=== PATIENT | female | born 1990 ===

== ENCOUNTER 2025-10-24 20:34 | Inpatient (IN) ==
[2025-10-24] MEDS ORDERED: OXYTOCIN 10 UNIT/ML VIAL IM PRN (21:09)
[2025-10-24] MEDS ORDERED: SODIUM CHLORIDE FLUSH 0.9% 10 ML SYRINGE IVP PRN (21:09)
[2025-10-24] MEDS ORDERED: fentaNYL 100 MCG/2 ML VIAL IVP PRN (21:09)
[2025-10-24] MEDS ORDERED: METHYLERGONOVINE 0.2 MG/ML VIAL IM PRN (21:09)
[2025-10-24] MEDS ORDERED: TERBUTALINE 1 MG/ML VIAL SUBQ PRN (21:09)
[2025-10-24] MEDS ORDERED: CARBOPROST TROMETHAMINE 250 MCG/ML VIAL IM PRN (21:09)
[2025-10-24] MEDS ORDERED: LABETALOL 20 MG/4 ML SYRINGE IVP PRN ×3 (21:09)
[2025-10-24] MEDS ORDERED: hydrALAZINE INJ 20 MG/ML VIAL IVP PRN (21:09)
[2025-10-24 21:23] LABS: HCT - HEMATOCRIT 36.7 % (37.0-47.0); HGB - HEMOGLOBIN 12.6 g/dL (12.0-16.0); MEAN PLATELET VOLUME 11.7 fL (7.9-10.8); NRBC ABSOLUTE COUNT (AUTO) 0.00 x10^3/uL; NUCLEATED RED BLOOD CELLS AUTO 0.0 /100WBC; PLT - PLATELET COUNT 249 10^3/uL (130-450); RED CELL DISTRIBUTION WIDTH 13.0 % (12.0-15.0)
--- NOTE | 2025-10-24 21:26 | HISTORY & PHYSICAL EXAMINATION ---
NST Procedure NST Procedure: NST Procedure Start Time 17:24 Stop Time 18:07 Meds/Allgy Home Medications Ambulatory Orders Medication Instructions Recorded Confirmed aspirin 81 mg tablet,delayed 81 mg PO QDAY 07/21/25 release cholecalciferol (vitamin D3) 25 25 mcg PO QDAY 5 10/24/25 mcg (1,000 unit) capsule levothyroxine 50 mcg capsule 50 mcg PO QDAY 07/21/25 1 12/25/24 loratadine 10 mg capsule 10 mg PO QDAY 07/21/2510/24 omega-3 fatty acids-fish oil 300 cap PO 07/21/2510/24 mg-500 mg capsule (Fish Oil) triamcinolone acetonide 55 mcg 1 spray intranasal QDAY 07/21/25 10/24/25 nasal spray aerosol Allergies Allergies Allergy/AdvReac Type Severity Reaction Status Date / Time Penicillins Allergy Rash Verified 10/24/25 16:10 PFSH Active Problems All Active Problems (Updated 10/24/25 @ 21:11 by Myesha Ying CNM, SUPERVISOR RECLAMATION) Supervision of normal in third trimester (Acute) ROD (amniotic fluid index) borderline low (Acute) Uterine size date discrepancy (Acute) Rh negative status during in third trimester (Acute) Hypothyroidism affecting in third trimester (Acute) Supervision of normal in second trimester (Acute) Medical History Medical History (Updated 10/24/25 @ 21:11 by Myesha Ying CNM, SUPERVISOR RECLAMATION) Seasonal allergies Abnormal Pap smear of cervix 2019 Hypothyroidism Surgical History Surgical History (Updated 07/21/25 @ 16:02 by Tressa Sanchez RN) H/O breast implant Family History Family History (Updated 07/24/25 @ 11:00 by Paola Corona MA) Mother Breast cancer Father Skin cancer Social History Social History Smoking Status: Never smoker Second hand tobacco smoke exposure: No Do you dip or chew tobacco?: No Do you vape?: No Living arrangement: At home ETOH Use: None Substance Use: denies use 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 She presented earlier in the day with concerns for decreased amniotic fluid however this was deemed to be normal by formal bedside ultrasound with ROD 13. A ROM+ was positive although discussion that sample was likely contaminated with blood due to recent cervical exam was discussed. Given potential for possible rupture of membranes and 39.6wk gestation, the decision was made to admit the patient for management. Upon arrival this evening she is found to contract every 4-5 minutes with soft resting tone. FHR baseline 120s, moderate variability, no accels, no decels. SVE was deferred however most recent SVE in the office this afternoon was 2-3/60/-2 and vertex. She will be admitted to [facility] for pre-augmentation cervical ripening with misoprostol. She has been a patient of [facility] since her transfer of care from [facility] at 28wks gestation. Her has remained uncomplicated with the exception of mild anemia. In the event of an emergency, ACCEPTS the administration of blood products : SAB G2: SAB G3: Current Partner/FOB:[facility] Hx: hypothyroid Surgical Hx: Breast augmentation, wisdom teeth extractions. Social Hx: No smoking Family Hx: Dad - skin cancer, Mom Breast cancer Allergies:PCN Medications: LDASA, PNV, levothyroxine Problems:Hypothyroidism will repeat TSH with every blood draw Consults: LMP:01/18/2025 BERENICE by LMP: 10/25/2025 U/S: @ 8 weeks, concurrent with LMP dating Final BERENICE: 10/25/2025 Pre- weight: 150 BMI: 24.6 Blood type: A- RHOGAM Given 08/08/2025 Antibody screen: negative CBC: PLT-260 HCT-12.4 HGB-35.3 Rubella: immune VZV: NOT DRAWN HBsAg: negative Hep C: negative RPR/AB-EIA: NOT DRAWN HIV: negative Flu: Received through work COVID: PAP: 01/03/2025- Normal/HPV negative GC/CT: negative HSV: denies in self and partner Genetic screening/counselling: NIPT drawn 03/29- normal AFP: 06/14/25-negative *LDASA: taking FAS: done 06/14/2025 Placenta: anterior Cord: 3VC ROD: normal EFW: 389g, 42%ile 50gm GCT: 122 3 hr GTT: TDAP: 08/08/2025 Breast Pump: 07/24/2025 2nd antibody screen: 07/14- NEGATIVE RHOGAM: 08/08/2025 3rd trimester H/H PLT 07/14-11.4/32.3 3rd trimester RPR RSV: 09/05/2025 GBS: Negative Physical exam: Normocephalic, atraumatic Heart RRR w/o M/G/R Lungs CTAB Abdomen gravid, soft, nontender FHR baseline 120s, moderate variability, no accels, no decels Contractions palpate mild every 4-5 minutes with soft resting tone SVE 2-3/60/-2, midposition. Vertex. ROM+ previously positive, likely contaminated sample/false positive result Bilateral LE's trace edema Mood is good. Assessment: 35yo @ 39.6wks gestation by LMP c/w 8wk U/S FHR Category I GBS negative Plan: Admit to [facility] for augmentation of labor. Pre-augmentation cervical ripening with misoprostol 50mcg BC q 4 hours. Plan 1-2 doses of misoprostol prior to initiation of pitocin for continued augmentation of labor. Consider SVE prior to second dose if patient uncomfortable. Continuous monitoring. Encouraged ambulation and position changes with onset of uncomfortable contractions. Prioritize promoting rest through the night while persistently ripening cervix. Jacuzzi PRN. Nitrous oxide PRN. Epidural per maternal request. Anticipate .
[2025-10-24] MEDS: SODIUM CHLORIDE FLUSH 0.9% 10 ML SYRINGE IVP SCH (21:47)
[2025-10-25] MEDS: TRANEXAMIC ACID IN NACL 1,000 MG/100 ML BAG IV PRN (00:33)
[2025-10-25] MEDS: LACTATED RINGERS 1,000 ML IV PRN ×2 (06:55→09:40)
[2025-10-25] MEDS ORDERED: LIDOCAINE 2%-EPI 1:100000 20 ML MDV ONE (07:00)
[2025-10-25] MEDS ORDERED: ROPIVACAINE 0.2% 200 MG/100 ML BAG EP ONE (07:00)
[2025-10-25] MEDS ORDERED: METOCLOPRAMIDE 10 MG/2 ML VIAL IVP PRN (09:40)
[2025-10-25] MEDS ORDERED: LACTATED RINGERS 500 ML IV ONE (09:40)
[2025-10-25] MEDS ORDERED: ONDANSETRON 4 MG/2 ML VIAL IVP PRN (09:40)
[2025-10-25] MEDS ORDERED: NALBUPHINE 10 MG/ML AMP IVP PRN (09:40)
[2025-10-25] MEDS ORDERED: NALOXONE 0.4 MG/ML VIAL IVP PRN (09:40)
[2025-10-25] MEDS ORDERED: ePHEDrine 50 MG/ML VIAL IVP PRN (09:40)
--- NOTE | 2025-10-25 11:33 | DELIVERY NOTE ---
OB Labor and Delivery Note Delivery Comments (Free Text/Narrative) Delivery Comments (Free Text/Narrative): S: Feeling comfortable with epidural. She has not been able to sleep. She was rather uncomfortable throughout the night last night but now that she is comfortable with her epidural she is feeling too excited to sleep. She states overall she is doing very well though and is intending to rest until delivery. She accepts initiation of pitocin to increase frequency of contractions. Her is supportive at the bedside. O: FHR baseline 130s, moderate variability, + accel, no decels Contractions palpate moderate to strong every 4-5 minutes with soft resting tone. SVE 6-7/90/-1, vertex SROM x 6 hours A: 35yo @ 40.0wks gestation by LMP c/w 8wk U/S Active labor FHR Category I GBS negative P: Initiation pitocin for augmentation of labor with titration per protocol. Continuous monitoring. Encouraged rotation in bed on peanut ball. Anticipate .
[2025-10-25] MEDS: OXYTOCIN/SODIUM CHLORIDE 500 ML IV SCH (11:53)
--- NOTE | 2025-10-25 12:30 | PHARMACY PROGRESS NOTE ---
Best Possible Medication History Admit Date and Time: 10/24/252108 Home Medications Medication Instructions Recorded Confirmed Type loratadine 10 mg capsule 10 mg PO DAILY 07/21/2510/16 History triamcinolone acetonide 55 mcg 1 spray intranasal RIVAS Y 07/21/25 10/25/25 History nasal spray aerosol aspirin 81 mg tablet 81 mg PO DAILY 10/25/2510/16 History levothyroxine 50 mcg tablet 50 mcg PO DAILY 10/25/25 1 12/26/24 History vit no.95-ferrous 1 tab PO DAILY 10/25/2509/09 History fumarate 28 mg-folic acid 800 mcg tablet ( Multivitamins) Processed by: Pharmacy Medications reviewed in ED?: No Medication History completed: Yes Patient Interview: Completed (BY [employer]) Secondary Source(s): Insurance records [facility] Statement: As the person ultimately responsible for medication therapy, providers are able to order a medication from an existing home medication list in [employer] via the "Reconcile Routine" prior to Confirmation of that medication by print support specialist. Such practice is discouraged except when the physician, in their clinical judgment, deems that a medical need exists for a medication without regard to previous use.
[2025-10-25] MEDS: ROPIVACAINE 0.2% 200 MG/100 ML BAG EP PRN (14:21)
[2025-10-25] MEDS: CALCIUM CARBONATE CHEW 500 MG TABLET PO SCH (18:42)
[2025-10-25] MEDS: OXYTOCIN/SODIUM CHLORIDE 500 ML IV PRN (23:30)
[2025-10-26] MEDS ORDERED: KETOROLAC 30 MG/ML VIAL ONE (00:10)
[2025-10-26] MEDS: KETOROLAC 30 MG/ML VIAL IVP SCH (00:13)
[2025-10-26] MEDS ORDERED: SIMETHICONE CHEW 80 MG TABLET PO PRN (00:45)
[2025-10-26] MEDS ORDERED: NALOXONE 0.4 MG/ML VIAL IVP PRN (00:45)
[2025-10-26] MEDS ORDERED: LABETALOL 20 MG/4 ML SYRINGE IVP PRN ×2 (00:45)
[2025-10-26] MEDS ORDERED: OXYTOCIN/SODIUM CHLORIDE 500 ML IV PRN (00:45)
[2025-10-26] MEDS ORDERED: LABETALOL 5 MG/1 ML 20 ML MDV IVP PRN (00:45)
[2025-10-26] MEDS ORDERED: hydrALAZINE INJ 20 MG/ML VIAL IVP PRN ×2 (00:45)
[2025-10-26] MEDS ORDERED: LIDOCAINE JELLY 2% 6 ML JEL.PF.APP TOP PRN (00:52)
--- NOTE | 2025-10-26 01:12 | DELIVERY NOTE ---
OB Labor and Delivery Note Labor Labor: Other (Induced by misoprostol) Infant Delivery Method Delivery Method: Forceps assist (Outlet forceps) Cervical Ripening Method Cervical Ripening Method: Misoprostil Presentation Presentation: OA - occiput anterior (with slight asynclitism) Nuchal Cord Nuchal Cord: Present (x 2, tight; baby delivered through) Amniotic Fluid Description Amniotic Fluid Description: Moderate meconium Episiotomy Type Episiotomy Type: None Laceration Laceration: 4th degree, Sulcus and Vaginal Suture Suture Size: 2-0, 4-0 and Other (0 vicryl) Delivery Outcome Delivery Date: 10/25/25 Delivery Time: 23:25 Delivery Outcome: Livebirth : Placed in direct skin contact with mother (Briefly then moved to the warmer) sex: Male Cord Cord: 3 vessels Placenta Placenta: Intact and Expressed Estimated Blood Loss Estimated Blood Loss (in cc): 592 Delivery Comments (Free Text/Narrative) Delivery Comments (Free Text/Narrative): Nicki was admitted with suspected SROM, and labor was inducted with misoprostol then Pitocin. She progressed readily to c/c/+1 and started to push at approx 1806. FHT at that time was cat. OB Physician consulted to assist with delivery after 3-4 hrs of pushing (about 2230). Just prior to that, FHR was cat 2 with periods of repetitive late decels that then seemed to resolve at time of my arrival. Variability was moderate, and she was making progress (albeit slow) with pushing. The patient was requesting assessment for operative vaginal delivery due to exhaustion. On my exam, baby was +2 pushing to +3, similar to her station for approx the last 30 min. Estimated weight was approximately 7 lb, and pelvis was felt to be adequate. Position was thought to be OP with slight asynclitism toward the maternal left. Bladder was drained with and in/out cath (approx 15 ml bloody urine obtained). I pushed with her for an additional 20-30 min but didn't note further progression. The patient desired to proceed with forceps delivery at that point. Zeng forceps were obtained and were a matching pair. They were soaked with betadine and articulated at the perineum to ghost the application. The left blade was then placed along the left side of the vagina and baby's head, protecting the maternal tissues with the vaginal hand. The right blade was then placed in a similar fashion (time 2323). The blades were articulated with the next contraction. With one contraction and set of pushes, head delivered. Pressure was applied to the perineum as head delivered; however, tissue easily to a 4' laceration. The head delivered direct OA. The forceps were disarticulated and removed. Delivery of the baby was then turned over to [facility]. A tight nuchal x 2 was present and not easily reduced, so the baby was delivered through. Delivery occurred at 2325. He was placed on the maternal abdomen with minimal respiratory effort or tone (first was 6). Cord was clamped/cut prior to 60 sec to move the baby to the warmer, then tone and respiratory effort started to improve. Cord segment was cut for gases (ABG 7.16, VBG 7.19) and cord blood was obtained. 4' laceration was diagnosed and Tranexamic acid started to help with hemostasis. Pressure applied to the wound while awaiting placenta delivery. I resumed care and delivered placenta with gentle traction at 2331. It appeared intact. Pitocin was then started, and the uterus contracted well. Uterus was swept and no tissue or clots noted. Attention was turned to repair of the 4' laceration. First, the apex of the rectal tear was identified. 4-0 vicryl was placed at the apex, and the rectal mucosa closed in a subcuticular fashion the the external anal verge. Attention was then turned to closure of the external anal sphincter fascia. 0 vicryl was placed in figure of eight sutures at the posterior, inferior, superior, and anterior aspects of the sphinter, reapproximating the tissue well. The apex of the second degree portion was closed with a 2-0 vicryl, closing in locked, nonlocked running suture to the hymenal ring then changing direction to run down the perineum. Here a crown stitch was placed, then the submucosa reapproximated to the anal verge. The subcuticular 4-0 vicryl was then continued anteriorly to close the skin to the hymenal ring. Left sidewall and left sulcus lacerations were repaired with 2-0 vicryl to reapproximate and achieve hemostasis.
--- NOTE | 2025-10-26 01:25 | PROVIDER PROGRESS NOTE ---
Labor Progress Note Labor Progress Note Labor Progress Note/Additional Text: 10/25/2025 @ 1730 S: Patient comfortable with epidural. Intermittently getting more relief on the left side than the right but is able to achieve adequate pain relief with right tilt. She is very ready to start pushing and is hoping to have a baby soon. She has not slept today as she has been too excited. Her Sky is supportive at the bedside. O: FHR baseline 140, moderate variability, + accels, no decels Contractions palpate strong every 2-4 minutes with soft resting tone SVE 9.5/100/0, and vertex SROM x 12 hours, clear fluid Pitocin @ 8mU/min A: 35yo @ 40.0wks gestation by LMP c/w 8wk U/S Active labor FHR Category I GBS negative P: Initiate second stage. Continue titration of pitocin per protocol. Continuous monitoring. Maintain epidural for pain management. Anticipate .
--- NOTE | 2025-10-26 01:47 | PROVIDER PROGRESS NOTE ---
Labor Progress Note Labor Progress Note Labor Progress Note/Additional Text: 10/25/2025 @ 1999 S: Patient has been spontaneously pushing with tremendous effort x 2 hours. She states she is feeling tired but strongly desires to continue spontaneous pushing efforts. We reviewed risk vs benefit of assisted vaginal delivery with forceps vs vacuum delivery at discretion of convalescent sitter physician. Discussed that I am going to call convalescent sitter physician to notify of 2 hours of pushing at this time. Patient asks to avoid additional providers at the bedside until absolutely necessary. Strongly desires to avoid any type of assisted delivery at this time. is supportive at the bedside. O: FHR baseline 150s, moderate variability, + accels, intermittent variable decelerations, occasional late decelerations - overall reassuring Contractions every 3-9 minutes. Intermittently contractions palpate strong however majority of contractions palpate moderate. Soft resting tone. Adequate maternal pushing effort with notable descent when contractions palpate strong. Pitocin increased per protocol. Currently at 12mU/min. SROM x 14 hours, light meconium noted A: 35yo @ 40.0wks gestation by LMP c/w 8wk U/S Active labor FHR Category II GBS negative P: media aid physician notified of 2 hours of pushing. Presence not requested at this time as status is reassuring. Discussed with convalescent sitter physician that her contraction intensity does not palpate adequate at this time and plan is to titrate to strong contractions given overall reassuring status and patient desire to continue spontaneous pushing efforts. media aid senior warehouse clerk notified of prolonged pushing efforts and meconium stained amniotic fluid. Presence requested at the bedside at the time of delivery. Continuos monitoring. Rotate side lying pushing positions and include closed-knee pushing efforts in attempt to aid in descent. Reviewed with patient that it is appropriate for us to continue spontaneous pushing efforts at this time given status reassuring, however reviewed increased risk of hemorrhage and discussed if status becomes non-reassuring, that I will consult with convalescent sitter physician again and request presence at the bedside to evaluate. Pt verbalized understanding and agrees to above plan. Anticipate .
[2025-10-26] MEDS: ceFAZolin (2G) 2 GM in SODIUM CHLORIDE 0.9% MINIBAG 100 ML IV SCH (01:50)
--- NOTE | 2025-10-26 01:59 | PROVIDER PROGRESS NOTE ---
Labor Progress Note Labor Progress Note Labor Progress Note/Additional Text: 10/26/2025 @ 0100 This 35yo presented to [facility] in with suspected SROM. Cervix was 2-3/60/-2 and vertex. ROM+ was positive. She received 2 doses of 50mcg BC misoprostol for effective pre-induction cervical ripening. FHR demonstrated Category I pattern throughout labor. Normal labor course. Epidural placed per maternal request. Obvious SROM occurred @ 0520 and was noted to be a moderate amount of clear fluid. Pitocin was initiated for augmentation of labor with a maximum infusion rate of 8mU/min during first stage of labor, and 16mU/min during second stage of labor. She progressed to c/c/0 at 1806. She demonstrated tremendous pushing effort x 2 hours at which time an operative vaginal delivery was discussed at length and surveyor oil well directional physician was notified of 2 hours of pushing however consult was not requested at that time due to reassuring status and patient's strong preference of avoid operative delivery or additional provider presence at the bedside. Intermittently her contractions palpated moderate with occasional strong contraction. Strong contractions yielded good descent. Pitocin was titrated secondary to strength of contractions for a maximum infusion rate of 16mU/min. scallop binder physician was notified and presence requested on the unit at approximately 2200 due to Category II FHR with repetitive late decelerations. Shortly thereafter the repetitive late decelerations resolved. status r emained reassuring throughout secondary to moderate variability. At approximately 2230 physician was requested at the bedside to assess for appropriateness of operative vaginal delivery due to maternal exhaustion. Despite exhaustion, the patient persistently demonstrated tremendous spontaneous pushing effort with continued, slow progress with pushing reaching +[address] Garcia, surveyor oil well directional physician assumed care at that time (see physician delivery note for details). Following successful forceps delivery of head, delivery of infant was assumed by myself and occurred on 10/25/2025 @ 2325. Tight nuchal cord x 2 was unable to be reduced and delivery through. was placed on maternal abdomen, stimulated, dried, and secondary to minimal respiratory effort and/or tone, the cord was clamped x 2 by CNM and cut by FOB. was moved to warmer by music instructor where tone and repiratory effort improved. Umbilical cord gases collected from cord segment (ABG 7.16, VBG 7.19) and cord blood was obtained. 3VC. 4th degree laceration was diagnosed and care turned over to surveyor oil well directional physician Dr. Garcia. (see physician note for delivery of placenta and repair of 4th degree laceration details). Skin to skin contact maintained. initiated. Family bonding well. Both mother and baby were left in stable condition
[2025-10-26] MEDS: ACETAMINOPHEN 500 MG TABLET PO PRN (03:47)
[2025-10-26] MEDS: IBUPROFEN 600 MG TABLET PO PRN (06:27)
[2025-10-26] MEDS: LEVOTHYROXINE 25 MCG TABLET PO SCH (08:00)
[2025-10-26 10:12] LABS: HCT - HEMATOCRIT 29.8 % (37.0-47.0); HGB - HEMOGLOBIN 10.1 g/dL (12.0-16.0); MEAN PLATELET VOLUME 11.7 fL (7.9-10.8); PLT - PLATELET COUNT 211.0 10^3/uL (130-450); RED CELL DISTRIBUTION WIDTH 13.2 % (12.0-15.0)
[2025-10-26] MEDS: DOCUSATE SODIUM 100 MG CAPSULE PO SCH (10:51)
[2025-10-26] MEDS: WITCH HAZEL/GLYCERIN 1 PAD TOP PRN (10:52)
[2025-10-26] MEDS: HYDROCORTISONE 1% OINTMENT 28 GM TUBE TOP PRN (10:52)
--- NOTE | 2025-10-26 13:41 | PROVIDER PROGRESS NOTE ---
Subjective Prog Note Date Prog Note Date: 10/26/25 Prog Note Time: 04:00 Subjective Pt reports feeling: Improved Subjective: PPD #1 s/p forceps assisted VD late last night (for maternal exhaustion and prolonged second stage). Delivery complicated by 4' laceration that was repaired in the LDRP. She is receiving Ancef 2 gm IV Q 8 hrs x 3 doses for infection prophylaxis given severe laceration. She had a paris catheter placed after delivery due to some urinary retention and uterus enlarging/slightly deviated to R. [place] drained 500 ml right away and was left overnight. She was up and ambulating today, and paris catheter removed. She has since voided without any problems. Denies pain or feeling like she's retaining urine. Perineal pain has been manageable with topical meds, Tylenol, and Motrin. Lochia has been moderate and not decreasing quite yet per patient. She reports a transient episode of seeing some visual spots this afternoon but feels it may have been related to fatigue. She has only slept an hour and feels exhausted. Denies headache, abdominal pain, or other symptoms of preE. Baby is at the bedside and doing fairly well. He has a head that is being monitored by Peds (cephalohematoma, less likely subgaleal). Area is tender for him but has reportedly been improving today. Current Medications Current Medications Current Medications: Current Medications Generic Name Dose Route Start Last Admin Trade Name Freq PRN Reason Stop Dose Admin Acetaminophen 1,000 mg 10/26/25 00:45 10/26/25 10:51 Acetaminophen 500 Mg Tablet PO 1,000 mg Q8HR PRN Administration Mild Pain or Fever>38C(100.4F) Calcium Carbonate/Glycine 500 mg 10/25/25 18:40 10/26/25 12:45 Calcium Carbonate Chew 500 Mg Tablet PO Not Given BID NAKUL Carboprost Tromethamine 250 mcg 10/24/25 21:09 Carboprost Tromethamine 250 Mcg/Ml Vial IM .ONCE PRN Hemorrhage Docusate Sodium 100 mg 10/26/25 09:00 10/26/25 10:51 Docusate Sodium 100 Mg Capsule PO 100 mg BID NAKUL Administration Hydralazine HCl 10 mg 10/26/25 00:45 Hydralazine Inj 20 Mg/Ml Vial IVP .ONCE PRN SBP> or= 160 OR DBP> or= 110 Protocol Hydralazine HCl 5 - 10 mg 10/26/25 00:45 Hydralazine Inj 20 Mg/Ml Vial IVP Q20M PRN SBP >=160 and/or DBP >=110 Protocol Hydrocortisone 1 applic 10/26/25 00:52 10/26/25 10:52 Hydrocortisone 1% Ointment 28 Gm Tube TOP 1 applic PRN PRN Administration PAIN 1-4 Lactated Ringer's 500 mls @ 999 mls/hr 10/24/25 21:09 10/26/25 07:40 Lr IV Infused PRN PRN Infusion PER PHYSICIAN ORDER Oxytocin/Sodium Chloride 500 mls @ 999 mls/hr 10/24/25 21:09 10/26/25 03:54 Pitocin/Sodium Chloride IV Infused PRN PRN Titration POST- HEMORR PREVENTION Protocol 999 MILLIUNIT/MIN Tranexamic Acid 1,000 mg in 100 mls @ 600 mls/hr 10/24/25 21:09 10/26/25 00:44 Tranexamic 1,000 Mg/100ml-Nacl IV Infused Q30M PRN Infusion EBL >1200mL and within 3hr Lactated Ringer's 1,000 mls @ 125 mls/hr 10/24/25 22:00 10/26/25 07:40 Lr IV Infused .Q8H PRN Infusion PER PHYSICIAN ORDER Ropivacaine 200 mg in 100 mls @ 0 mls/hr 10/25/25 09:40 10/25/25 20:11 Naropin 0.2% EP 10 mls/hr PRN PRN Administration PAIN Protocol Per Protocol Oxytocin/Sodium Chloride 500 mls @ 2 mls/hr 10/25/25 11:39 10/25/25 23:25 Pitocin/Sodium Chloride IV Infused TITR NAKUL Titration Protocol 2 MILLIUNIT/MIN Oxytocin/Sodium Chloride 500 mls @ 999 mls/hr 10/26/25 00:45 Pitocin/Sodium Chloride IV PRN PRN POST- HEMORR PREVENTION Protocol 999 MILLIUNIT/MIN Cefazolin Sodium 2 gm/ Sodium 100 mls @ 200 mls/hr 10/26/25 00:52 10/26/25 11:50 Chloride IV 10/26/25 17:21 Infused Q8H NAKUL Infusion Ibuprofen 600 mg 10/26/25 00:45 10/26/25 10:51 Ibuprofen 600 Mg Tablet PO 600 mg Q6HR PRN Administration Moderate Pain (Level 4-6) Ketorolac Tromethamine 30 mg 10/26/25 01:00 10/26/25 00:13 Ketorolac 30 Mg/Ml Vial IVP 10/31/25 00:59 30 mg ONCE NAKUL Administration Labetalol HCl 20 - 80 mg 10/26/25 00:45 Labetalol 5 Mg/1 Ml 20 Ml Mdv IVP Q10M PRN SBP> or= 160 OR DBP> or= 110 Protocol Labetalol HCl 20 - 40 mg 10/26/25 00:45 Labetalol 20 Mg/4 Ml Syringe IVP Q10M PRN SBP> or= 160 OR DBP> or= 110 Protocol Labetalol HCl 20 mg 10/26/25 00:45 Labetalol 20 Mg/4 Ml Syringe IVP .ONCE PRN SBP >=160 and/or DBP >=110 Protocol Levothyroxine Sodium 50 mcg 10/25/25 12:00 10/26/25 08:00 Levothyroxine 25 Mcg Tablet PO Not Given QDAC NAKUL Lidocaine HCl 20 ml 10/24/25 21:09 Lidocaine 1% 20 Ml Mdv ID 10/27/25 21:09 .ONCE PRN PERINEAL REPAIR Lidocaine HCl 1 ml 10/26/25 00:52 Lidocaine Jelly 2% 6 Ml Jel.Pf.Patrick TOP PRN PRN PAIN 1-4 Methylergonovine Maleate 0.2 mg 10/24/25 21:09 Methylergonovine 0.2 Mg/Ml Vial IM .ONCE PRN Hemorrhage Metoclopramide HCl 10 mg 10/25/25 09:40 Metoclopramide 10 Mg/2 Ml Vial IVP Q6HR PRN Nausea / Vomiting Misoprostol 600 mcg 10/24/25 21:09 Misoprostol 200 Mcg Tablet BC .ONCE PRN Hemorrhage Misoprostol 800 mcg 10/24/25 21:09 Misoprostol 200 Mcg Tablet OR .ONCE PRN Hemorrhage Nalbuphine HCl 2.5 - 5 mg 10/25/25 09:40 Nalbuphine 10 Mg/Ml Amp IVP Q4H PRN ITCHING Naloxone HCl 0.1 mg 10/25/25 09:40 Naloxone 0.4 Mg/Ml Vial IVP Q2M PRN RR<8 Naloxone HCl 0.4 mg 10/26/25 00:45 Naloxone 0.4 Mg/Ml Vial IVP .ONCE PRN Opioid Overdose Nifedipine 10 - 20 mg 10/26/25 00:45 Nifedipine 10 Mg Capsule PO Q20M PRN SBP >=160 and/or DBP >=110 Protocol Oxytocin 10 unit 10/24/25 21:09 Oxytocin 10 Unit/Ml Vial IM .ONCE PRN Step One if no IV access. Simethicone 80 mg 10/26/25 00:45 Simethicone Chew 80 Mg Tablet PO TID PRN Gas Sodium Chloride 10 ml 10/24/25 21:09 Sodium Chloride Flush 0.9% 10 Ml Syringe IVP PRN PRN NEEDED PER PROVIDER ORDERS Sodium Chloride 10 ml 10/24/25 22:00 10/26/25 03:54 Sodium Chloride Flush 0.9% 10 Ml Syringe IVP 10 ml Q8H NAKUL Administration Terbutaline Sulfate 0.25 mg 10/24/25 21:09 Terbutaline 1 Mg/Ml Vial SUBQ .ONCE PRN Tachystole Witch Valerie/Glycerin 1 pad 10/26/25 00:45 10/26/25 10:52 Witch Valerie/Glycerin 1 Pad TOP 1 pad PRN PRN Administration PAIN 1-4 Objective Vital Signs/Intake & Output Reviewed Vital Signs: Yes Vital Signs: Vital Signs x48h Temp Pulse Resp BP Pulse Ox 10/26/25 11:32 96 20 117/73 100 10/26/25 10:20 36.7 C 93 16 120/63 100 Intake & Output: Intake & Output 10/23/25 10/24/25 10/25/25 10/26/25 23:59 23:59 23:59 23:59 Intake Total 1878 / 1878 2246 / 2246 Output Total 375 / 375 3250 / 3250 Balance 1503 / 1503 -1004 / -1004 Weight (kg) 77.337 kg Objective General Appearance: positive No acute distress and Alert Respiratory: positive No respiratory distress Cardiovascular: positive Regular rate & rhythm Abdomen: positive Non-tender and Other (Uterus firm, nontender at U-1) Skin: positive Color nml Extremities: positive Non-tender and Nml appearance Neurologic/Psychiatric: positive Oriented x3 and Mood/affect nml Lab Results 12/11/25 10:05 Other Labs: Lab Results x24hrs 10/26/25 Range/Units 10:05 WBC 31.6 H (4.8-10.8) x10^3/uL RBC 3.15 L (4.20-5.40) 10^6/uL Hgb 10.1 L (12.0-16.0) g/dL Hct 29.8 L (37.0-47.0) % MCV 94.6 (81.0-99.0) fL MCH 32.1 H (27.0-31.0) pg MCHC 33.9 (32.0-36.0) g/dL RDW 13.2 (12.0-15.0) % Plt Count 211 (130-450) 10^3/uL MPV 11.7 H (7.9-10.8) fL Blood Type A NEGATIVE Weak D (Du) WEAK-D NEGATIVE Maternal Bleed NEGATIVE (NEGATIVE) Assessment/Plan Problem List (1) care following vaginal delivery: Impression: PPD #1 s/p FAVD and repair of 4' laceration. Overall healing appropriately. - H/H notes mild anemia, and patient in asymptomatic. No indication for iron or blood transfusion at this time. - Complete Ancef x 24 hrs PP (for prophylaxis) - Encouraged ambulation - Pain mgmt: tylenol, motrin, and topical meds; try to avoid narcotic pain meds that may cause constipation. - Stool softener ordered - Reviewed events of delivery, and all questions addressed by myself and CNM Stepan. - Consider discharge home tomorrow if doing well. - Discussed f/u with me in 7-10 days for perineal check (or sooner prn) (2) Fourth degree laceration of perineum during delivery, : (3) Rh negative status during in third trimester: Impression: Baby is Rh positive, and patient with neg bleed screen. Administer single dose of Rhogam.
--- NOTE | 2025-10-26 17:43 | PROVIDER PROGRESS NOTE ---
Subjective Subjective Subjective: Subjective: Patient reports she is doing well and hopeful to be discharged tomorrow Comfortable WITHOUT narcotic pain management Lochia appropriate. Denies heavy bleeding. Ambulating. Tolerating oral intake. Diet: Regular. Voiding without difficulty. On bowel care regimen. Passing gas. Had one small soft, stool without straining Patient is bonding with baby in room Breast feeding was going well with earlier feeds. Now working with nursing on latch. Denies feeling lightheaded, dizzy or excessively fatigued. Objective General: Alert, oriented, no apparent distress. Cardiovascular: No edema Lungs: No increased work of breathing. Abdomen: Uterus firm. Below umbilicus. VZV: not drawn Rubella: immune Assessment and Plan day 1. 35yo s/p vacuum assisted vaginal delivery and forth degree laceration with repair on 10/25/2025 Primarily physician management with CNM socially rounding and support as needed. Feels she's healing and doing well. Got some much needed rest today and feels she's processing much better now. No longer tearful. Hoping for discharge tomorrow, discussed dependent on her healing as well as baby's preparation for discharge Current Medications Current Medications Current Medications: Current Medications Generic Name Dose Route Start Last Admin Trade Name Freq PRN Reason Stop Dose Admin Acetaminophen 1,000 mg 10/26/25 00:45 10/26/25 10:51 Acetaminophen 500 Mg Tablet PO 1,000 mg Q8HR PRN Administration Mild Pain or Fever>38C(100.4F) Calcium Carbonate/Glycine 500 mg 10/25/25 18:40 10/26/25 12:45 Calcium Carbonate Chew 500 Mg Tablet PO Not Given BID [facility] Carboprost Tromethamine 250 mcg 10/24/25 21:09 Carboprost Tromethamine 250 Mcg/Ml Vial IM .ONCE PRN Hemorrhage Docusate Sodium 100 mg 10/26/25 09:00 10/26/25 10:51 Docusate Sodium 100 Mg Capsule PO 100 mg BID NAKUL Administration Hydralazine HCl 10 mg 10/26/25 00:45 Hydralazine Inj 20 Mg/Ml Vial IVP .ONCE PRN SBP> or= 160 OR DBP> or= 110 Protocol Hydralazine HCl 5 - 10 mg 10/26/25 00:45 Hydralazine Inj 20 Mg/Ml Vial IVP Q20M PRN SBP >=160 and/or DBP >=110 Protocol Hydrocortisone 1 applic 10/26/25 00:52 10/26/25 10:52 Hydrocortisone 1% Ointment 28 Gm Tube TOP 1 applic PRN PRN Administration PAIN 1-4 Lactated Ringer's 500 mls @ 999 mls/hr 10/24/25 21:09 10/26/25 07:40 Lr IV Infused PRN PRN Infusion PER PHYSICIAN ORDER Oxytocin/Sodium Chloride 500 mls @ 999 mls/hr 10/24/25 21:09 10/26/25 03:54 Pitocin/Sodium Chloride IV Infused PRN PRN Titration POST- HEMORR PREVENTION Protocol 999 MILLIUNIT/MIN Tranexamic Acid 1,000 mg in 100 mls @ 600 mls/hr 10/24/25 21:09 10/26/25 00:44 Tranexamic 1,000 Mg/100ml-Nacl IV Infused Q30M PRN Infusion EBL >1200mL and within 3hr Lactated Ringer's 1,000 mls @ 125 mls/hr 10/24/25 22:00 10/26/25 07:40 Lr IV Infused .Q8H PRN Infusion PER PHYSICIAN ORDER Ropivacaine 200 mg in 100 mls @ 0 mls/hr 10/25/25 09:40 10/25/25 20:11 Naropin 0.2% EP 10 mls/hr PRN PRN Administration PAIN Protocol Per Protocol Oxytocin/Sodium Chloride 500 mls @ 2 mls/hr 10/25/25 11:39 10/25/25 23:25 Pitocin/Sodium Chloride IV Infused TITR NAKUL Titration Protocol 2 MILLIUNIT/MIN Oxytocin/Sodium Chloride 500 mls @ 999 mls/hr 10/26/25 00:45 Pitocin/Sodium Chloride IV PRN PRN POST- HEMORR PREVENTION Protocol 999 MILLIUNIT/MIN Ibuprofen 600 mg 10/26/25 00:45 10/26/25 10:51 Ibuprofen 600 Mg Tablet PO 600 mg Q6HR PRN Administration Moderate Pain (Level 4-6) Ketorolac Tromethamine 30 mg 10/26/25 01:00 10/26/25 00:13 Ketorolac 30 Mg/Ml Vial IVP 10/31/25 00:59 30 mg ONCE NAKUL Administration Labetalol HCl 20 - 80 mg 10/26/25 00:45 Labetalol 5 Mg/1 Ml 20 Ml Mdv IVP Q10M PRN SBP> or= 160 OR DBP> or= 110 Protocol Labetalol HCl 20 - 40 mg 10/26/25 00:45 Labetalol 20 Mg/4 Ml Syringe IVP Q10M PRN SBP> or= 160 OR DBP> or= 110 Protocol Labetalol HCl 20 mg 10/26/25 00:45 Labetalol 20 Mg/4 Ml Syringe IVP .ONCE PRN SBP >=160 and/or DBP >=110 Protocol Levothyroxine Sodium 50 mcg 10/25/25 12:00 10/26/25 08:00 Levothyroxine 25 Mcg Tablet PO Not Given QDAC NAKUL Lidocaine HCl 20 ml 10/24/25 21:09 Lidocaine 1% 20 Ml Mdv ID 10/27/25 21:09 .ONCE PRN PERINEAL REPAIR Lidocaine HCl 1 ml 10/26/25 00:52 Lidocaine Jelly 2% 6 Ml Jel.Pf.Patrick TOP PRN PRN PAIN 1-4 Methylergonovine Maleate 0.2 mg 10/24/25 21:09 Methylergonovine 0.2 Mg/Ml Vial IM .ONCE PRN Hemorrhage Metoclopramide HCl 10 mg 10/25/25 09:40 Metoclopramide 10 Mg/2 Ml Vial IVP Q6HR PRN Nausea / Vomiting Misoprostol 600 mcg 10/24/25 21:09 Misoprostol 200 Mcg Tablet BC .ONCE PRN Hemorrhage Misoprostol 800 mcg 10/24/25 21:09 Misoprostol 200 Mcg Tablet LA .ONCE PRN Hemorrhage Nalbuphine HCl 2.5 - 5 mg 10/25/25 09:40 Nalbuphine 10 Mg/Ml Amp IVP Q4H PRN ITCHING Naloxone HCl 0.1 mg 10/25/25 09:40 Naloxone 0.4 Mg/Ml Vial IVP Q2M PRN RR<8 Naloxone HCl 0.4 mg 10/26/25 00:45 Naloxone 0.4 Mg/Ml Vial IVP .ONCE PRN Opioid Overdose Nifedipine 10 - 20 mg 10/26/25 00:45 Nifedipine 10 Mg Capsule PO Q20M PRN SBP >=160 and/or DBP >=110 Protocol Oxytocin 10 unit 10/24/25 21:09 Oxytocin 10 Unit/Ml Vial IM .ONCE PRN Step One if no IV access. Simethicone 80 mg 10/26/25 00:45 Simethicone Chew 80 Mg Tablet PO TID PRN Gas Sodium Chloride 10 ml 10/24/25 21:09 Sodium Chloride Flush 0.9% 10 Ml Syringe IVP PRN PRN NEEDED PER PROVIDER ORDERS Sodium Chloride 10 ml 10/24/25 22:00 10/26/25 03:54 Sodium Chloride Flush 0.9% 10 Ml Syringe IVP 10 ml Q8H NAKUL Administration Terbutaline Sulfate 0.25 mg 10/24/25 21:09 Terbutaline 1 Mg/Ml Vial SUBQ .ONCE PRN Tachystole Witch Valerie/Glycerin 1 pad 10/26/25 00:45 10/26/25 10:52 Witch Valerie/Glycerin 1 Pad TOP 1 pad PRN PRN Administration PAIN 1-4 Objective Vital Signs/Intake & Output Vital Signs: Vital Signs x48h Temp Pulse Resp BP Pulse Ox 10/26/25 11:32 96 20 117/73 100 10/26/25 10:20 36.7 C 93 16 120/63 100 Intake & Output: Intake & Output 10/23/25 10/24/25 10/25/25 10/26/25 23:59 23:59 23:59 23:59 Intake Total 1878 / 1878 2246 / 2246 Output Total 375 / 375 3250 / 3250 Balance 1503 / 1503 -1004 / -1004 Weight (kg) 170 lb 8 oz Lab Results 10/26/25 10:05 Other Labs: Lab Results x24hrs 10/26/25 Range/Units 10:05 WBC 31.6 H (4.8-10.8) x10^3/uL RBC 3.15 L (4.20-5.40) 10^6/uL Hgb 10.1 L (12.0-16.0) g/dL Hct 29.8 L (37.0-47.0) % MCV 94.6 (81.0-99.0) fL MCH 32.1 H (27.0-31.0) pg MCHC 33.9 (32.0-36.0) g/dL RDW 13.2 (12.0-15.0) % Plt Count 211 (130-450) 10^3/uL MPV 11.7 H (7.9-10.8) fL Blood Type A NEGATIVE Weak D (Du) WEAK-D NEGATIVE Maternal Bleed NEGATIVE (NEGATIVE)
[2025-10-26] MEDS: RHO(D) IMMUNE GLOBULIN 300 MCG SYRINGE IM PRN (21:12)
[2025-10-27 09:36] VITALS: O2SAT 100
--- NOTE | 2025-10-27 10:17 | Discharge Summary ---
Discharge Summary Admit Date: 10/24/25 Discharge Date: 10/27/25 Discharging Provider: PRISCILLA HARDY History of Present Illness: Diagnosis on admission: 35yo @ 39.6wks gestation by LMP c/w 8wk U/S FHR Category I GBS negative RH negative Diagnosis on Discharge 35yo s/p forceps assisted vaginal delivery and 4th degree laceration 10/25/2025, and Ancef 2gm IV x3 doses and urinary catheter placement and removal Overall unremarkable course Voiding and stooling without concern Vaginal bleeding significantly decreased Able to rest between feedings through the night Working with RN team on Baby doing well although bilirubin increasing and may meet phototherapy threshold Desires discharge to home or boarding status if baby requires additional inpatient management. Physical exam: Normocephalic, atraumatic Normal uterine involution, FF below umbilicus Feels bleeding has decreased significantly Minimal perineal discomfort managing with only IBU and tylenol. Has been voiding without issue since removal of paris catheter Has some stool leakage yesterday. Has a soft and semi-formed controlled bowel movement this morning with minimal discomfort Bilateral LE's no edema Mood is good. Feels she's processing the delivery experience well and her is processing too. Brief History: This 35yo presented to [facility] in with suspected SROM. Cervix was 2-3/60/-2 and vertex. ROM+ was positive. She received 2 doses of 50mcg BC misoprostol for effective pre-induction cervical ripening. FHR demonstrated Category I pattern throughout labor. Normal labor course. Epidural placed per maternal request. Obvious SROM occurred @ 0520 and was noted to be a moderate amount of clear fluid. Pitocin was initiated for augmentation of labor with a maximum infusion rate of 8mU/min during first stage of labor, and 16mU/min during second stage of labor. She progressed to c/c/0 at 1806. She demonstrated tremendous pushing effort x 2 hours at which time an operative vaginal delivery was discussed at length and scullion chief physician was notified of 2 hours of pushing however consult was not requested at that time due to reassuring status and patient's strong preference of avoid operative delivery or additional provider presence at the bedside. Intermittently her contractions palpated moderate with occasional strong contraction. Strong contractions yielded good descent. Pitocin was titrated secondary to strength of contractions for a maximum infusion rate of 16mU/min. supervisor case loading physician was notified and presence requested on the unit at approximately 2200 due to Category II FHR with repetitive late decelerations. Shortly thereafter the repetitive late decelerations resolved. status remained reassuring throughout secondary to moderate variability. At approximately 2230 physician was requested at the bedside to assess for appropriateness of operative vaginal delivery due to maternal exhaustion. Despite exhaustion, the patient persistently demonstrated tremendous spontaneous pushing effort with continued, slow progress with pushing reaching +[address] Garcia, scullion chief physician assumed care at that time (see physician delivery note for details). Following successful forceps delivery of head, delivery of infant was assumed by myself and occurred on 10/25/2025 @ 2325. Tight nuchal cord x 2 was unable to be reduced and delivery through. Infant was placed on maternal abdomen, stimulated, dried, and secondary to minimal respiratory effort and/or tone, the cord was clamped x 2 by CNM and cut by FOB. was moved to warmer by salt operator where tone and respiratory effort improved. Umbilical cord gases collected from cord segment (ABG 7.16, VBG 7.19) and cord blood was obtained. 3VC. 4th degree laceration was diagnosed and care turned over to scullion chief physician Dr. Garcia. (see physician note for delivery of placenta and repair of 4th degree laceration details). weight: 3384g She has been doing well in her course. She is ambulating and tolerating a regular diet. She is urinating without difficulty and her lochia is normal. Her pain is well controlled without narcotic management. She will be discharged to home today on day 2 and encouraged IBU, tylenol. She intends to follow up with [facility] IN PERSON with Dr. Garcia at 1 week . Her appointment has been moved to Wednesday 10/31 @ [address] Garcia. Reviewed the importance of keeping stool soft but formed stool. Discussed BID stool softeners which she has available to her at home. Discussed Miralax as well. Will place pelvic floor PT referral now as it can often take several months to establish. Declines control, will plan to resume condom use once resuming sexual activity. She has been given precautions to call if she has any new or worsening sx such as fevers, chills, abdominal pain, increasing bleeding, or foul smelling vaginal lochia. preeclamptic precautions reviewed as well. Rubella: immune RH: Negative, baby RH + (Rhogam given 10/26/2025) ALLERGIES Allergies Allergy/AdvReac Type Severity Reaction Status Date / Time amoxicillin Allergy Unknown Rash Verified 10/25/25 11:56 MEDICATIONS Ambulatory Orders Medication Instructions Recorded Confirmed loratadine 10 mg capsule 10 mg PO DAILY 07/21/2510/16 triamcinolone acetonide 55 mcg 1 spray intranasal RIVAS Y 07/21/25 10/25/25 nasal spray aerosol levothyroxine 50 mcg tablet 50 mcg PO DAILY 10/25/25 1 12/26/24 vit no.95-ferrous 1 tab PO DAILY 10/25/2509/09 fumarate 28 mg-folic acid 800 mcg tablet ( Multivitamins) PHYSICAL EXAM AT DISCHARGE Vital Signs: Vital Signs x48h Temp Pulse Resp BP Pulse Ox 10/27/25 09:35 36.4 C L 98 20 103/72 100 10/27/25 04:51 36.7 C 100 16 108/78 98 LABS 10/26/25 10:05 Discharge Plan Discharge Patient Disposition: 01 Home, Self Care Medically Cleared Date:: 10/27/25 Prescriptions: Continued levothyroxine 50 mcg tablet 50 mcg PO DAILY Patient Comments: TAKE 1 TABLET BY MOUTH ONCE DAILY PNV no.95-ferrous fumarate-FA [ Multivitamins] 28 mg iron- 800 mcg tablet 1 tab PO DAILY triamcinolone acetonide 55 mcg aerosol,spray 1 spray intranasal DAILY Rx Instructions: administer into each nostril loratadine 10 mg capsule 10 mg PO DAILY Discontinued aspirin 81 mg tablet 81 mg PO DAILY Print Language: Urdu Patient Instructions: Perineum Care After Childbirth, How to Breastfeed, Holds, Breast Care After , Nutrition While , Breastfeed Common Questions, The Benefits of Breastmilk, : Caring for Yourself, - Latch On
[2025-10-27 14:42] VITALS: BP 116/72; TEMP 98.6
--- NOTE | 2025-10-27 15:39 | Labor Flowsheet ---
Labor Flowsheet Datetime Report Generated by CPN: 10/27/2025 15:39 Datetime: 10/27/2025 14:41 VITAL SIGNS NBP Sys/Umza/Mean (mmHg): 116 : 72 : 81 Pulse: 101 Datetime: 10/26/2025 19:09 SpO2 (%): 100 Datetime: 10/26/2025 01:45 Stage of : Recovery Datetime: 10/26/2025 00:55 MEDICATIONS Pitocin (milliunits): Decreased to @ Medication Comments: Pitocin @ 60mls/hr Datetime: 10/26/2025 00:53 Epidural Procedure Other: Cath Removed; Cath Intact Datetime: 10/25/2025 23:59 Membranes Ruptured Date/Time: 10/25/2025 05:20 Datetime: 10/25/2025 23:30 LaborFlag: Labor Datetime: 10/25/2025 23:25 UTERINE ACTIVITY Monitor Mode: External Monitor Interventions for UA: [place] Adjusted Frequency (min): 2 Quality: Strong Duration (sec): 60-90 Pattern: Normal: <= 5 Contractions in 10 Minutes Resting Tone (Palpate): Relaxed ASSESSMENT A Monitor Mode: External US FHR Baseline Rate : 160 Variability: Moderate 6-25 bpm Accelerations: None Decelerations: Variable Category: Category II Forceps: Removed Stage 2 Comments: forceps removed with delivery of head, double nuchal, tight, delivered through Datetime: 10/25/2025 23:22 Patient Care Comments: Sales And Marketing Executive, Dr Hallman at bedside for delivery Datetime: 10/25/2025 23:00 Contraction Comments: difficulty tracing ctx pattern, 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 Interventions for FHR: Ultrasound Adjusted Datetime: 10/25/2025 22:57 Temperature (C): 36.7 Datetime: 10/25/2025 22:15 Comments: RN cont holding US to trace FHR Datetime: 10/25/2025 21:37 Membrane Comments: meconium noted while pushing Datetime: 10/25/2025 21:00 Patient Position/Activity: Right Tilt Datetime: 10/25/2025 20:54 I/O Interventions: Straight Cath (ml) @ 50 Datetime: 10/25/2025 19:45 Pitocin Checklist: At Least 1 Acceleration of 15 bpm x 15 Seconds in 30 Minutes or Adequate Variability; No More than 5 Uterine Contractions in 10 Minutes for any 20 Minute Interval; Uterus Palpates Soft between Contractions STAGE 2 Pushing: Coached on Pushing Datetime: 10/25/2025 19:30 Provider Reviewed Strip: Yes Datetime: 10/25/2025 19:00 Oxygen Method: Room Air Datetime: 10/25/2025 18:30 Actions for Decelerations: Provider Notified Datetime: 10/25/2025 18:06 Vaginal Exam Comments: anterior lip reduced by CNM Datetime: 10/25/2025 17:45 VAGINAL EXAM Dilatation (cm): 9.5 Effacement (%): 100 Station: -1 Exam by: AJunier CNM Datetime: 10/25/2025 15:35 Vaginal Bleeding: Normal Show Cervix, Consistency: Soft Cervix, Position: Anterior Datetime: 10/25/2025 12:40 Vital Sign Comments: RN at bedside-BP inaccruate-retaking Datetime: 10/25/2025 11:24 Communication Comments: Bedside huddle with CNM, RN, patient and spouse- plan to start pitocin Datetime: 10/25/2025 09:00 FHR Baseline Changes: No Baseline Change Datetime: 10/25/2025 07:33 Anesthesia Comments: Epidural started Datetime: 10/25/2025 07:24 Epidural Procedure: Test Dose Datetime: 10/25/2025 07:15 PROCEDURE TIME OUT Procedure Verify: Agreement on Procedure to be Done Datetime: 10/25/2025 07:05 ANESTHESIA Anesthesia Plans: Epidural (Annotations: Consent Signed) Datetime: 10/25/2025 07:04 TEACHING Instructional Method: Verbal Pain Management: Epidural Related: Activity and Rest Datetime: 10/25/2025 06:55 Temperature Route: Oral PATIENT CARE IV/Blood Work: IV Bolus Started Datetime: 10/25/2025 06:54 COMMUNICATION Communication: RN at Bedside Datetime: 10/25/2025 05:24 Respirations: 18 Datetime: 10/25/2025 05:20 Membranes Rupture Method: Spontaneous Amniotic Fluid Color: Clear Amniotic Fluid Amount: Moderate Datetime: 10/25/2025 04:21 Headache: Denies Nausea/Vomiting: Denies Datetime: 10/25/2025 03:18 Cervical Ripening Agents: Cytotec @ Datetime: 10/24/2025 23:00 MATERNAL ASSESSMENT Level of Consciousness: Alert Datetime: 10/24/2025 22:00 PAIN Pain Presence: None/Denies Datetime: 10/24/2025 21:09 Breath Sounds, Left: Clear and Equal Breath Sounds, Right: Clear and Equal RUQ Epigastric Pain: Denies Unit Routine: [place] to Room; Call [place] Labor/Induction: Activity
== END 2025-10-27 15:00 | disposition home or self-care (01) | DRG 768 ==
LOC: WFO 20:34 → FBP 20:36
PROVIDERS: ADMIT Nurse Practitioner Obstetrics & Gynecology; ATTEND Nurse Practitioner Obstetrics & Gynecology
DX: O69.81X0 Labor and delivery complicated by cord around neck, without compression, not applicable or unspecified; O99.284 Endocrine, nutritional and metabolic diseases complicating childbirth; O76 Abnormality in fetal heart rate and rhythm complicating labor and delivery; Z3A.39 39 weeks gestation of pregnancy; O70.3 Fourth degree perineal laceration during delivery; O77.0 Labor and delivery complicated by meconium in amniotic fluid; Z37.0 Single live birth; E03.9 Hypothyroidism, unspecified; O99.02 Anemia complicating childbirth